=== PATIENT | female | born 1985 | race Caucasian/White ===

== ENCOUNTER 2018-04-15 14:41 | Outpatient (CLI) | payer OTHER | END 2018-04-15 18:30 | disposition home or self-care (01) | LOC: NST 14:41 | DX: O30.003 Twin pregnancy, unspecified number of placenta and unspecified number of amniotic sacs, third trimester (principal); Z34.83 Encounter for supervision of other normal pregnancy, third trimester ==

== ENCOUNTER 2018-05-01 06:21 | Inpatient (IN) | payer OTHER ==
[~2018-05-01] VITALS: Ht 162.6 cm; Wt 2.3 kg
[2018-05-01] MEDS ORDERED: PRENATAL 19 TA1 EAC1 PO (08:37)
== END 2018-05-04 11:38 | DRG 786 ==
LOC: LDR 06:21 → SURG-SUITE 06:21 → O/R 06:21 → LDR 06:23 → SURG-SUITE 12:58
PROVIDERS: Obstetrics & Gynecology
PROC: 4A1HXCZ Monitoring of Products of Conception, Cardiac Rate, External Approach (ICD-10-PCS; 2018-05-01)
PROC: 4A033R1 Measurement of Arterial Saturation, Peripheral, Percutaneous Approach (ICD-10-PCS; 2018-05-01)
PROC: 10D00Z1 Extraction of Products of Conception, Low, Open Approach (ICD-10-PCS; principal; 2018-05-01 10:00)
DX: O32.8XX1 Maternal care for other malpresentation of fetus, fetus 1 (principal); O60.14X2 Preterm labor third trimester with preterm delivery third trimester, fetus 2; O30.093 Twin pregnancy, unable to determine number of placenta and number of amniotic sacs, third trimester; Z3A.36 36 weeks gestation of pregnancy; Z37.2 Twins, both liveborn